=== PATIENT | male | born 2000 | race Caucasian/White ===

== ENCOUNTER 2022-05-31 08:58 | Emergency (ER) | payer OTHER ==
[2022-05-31 11:18] LABS: HEMOGLOBIN 17.6 gm/dl (14.0-17.5); RED BLOOD COUNT 5.6 M/UL (4.20-5.50); WHITE BLOOD COUNT 7.2 K/UL (4.5-11.0)
[2022-05-31 11:52] LABS: BUN/CREATININE RATIO 11 (0-10)
== END 2022-05-31 12:58 | disposition home or self-care (01) ==
LOC: ER1 08:58
PROVIDERS: Family Medicine
DX: K64.4 Residual hemorrhoidal skin tags (principal); F17.290 Nicotine dependence, other tobacco product, uncomplicated
CPT/HCPCS: 80053; 85025; 99283